=== PATIENT | female | born 1990 | race Caucasian/White ===

== ENCOUNTER 2019-05-01 19:47 | Emergency (ER) | payer MEDICAID ==
[~2019-05-01] VITALS: Ht 160 cm; Wt 62.7 kg
[~2019-05-01 19:47] MED LIST: ALBU18HF2; NAPR375T PO
[2019-05-01 20:10] VITALS: BP 140/74
[2019-05-01] MEDS ORDERED: ibuprofen tablet 400 MG TABLET PO ONE (21:25)
[2019-05-01] MEDS ORDERED: acetaminophen 325mg tablet PO ONE (21:25)
[2019-05-01 21:32] LABS: CLARITY,URINE CLEAR (Clear); COLOR,URINE YELLOW (Yellow); GLUCOSE, URINE NEGATIVE (Neg); KETONES,URINE TRACE mg/dl (Neg); LEUKOCYTE ESTERASE ,URINE NEGATIVE (Neg); NITRITES, URINE NEGATIVE (Neg); OCCULT BLOOD,URINE NEGATIVE (Neg); PH,URINE 7.5 (4.8-8.0); PROTEIN,URINE NEGATIVE (Neg)
[2019-05-01 21:34] LABS: URINE HCG NEGATIVE (NEG)
[2019-05-01 21:35] LABS: UA COLLECTION TYPE CLN CATCH MIDSTREAM
[2019-05-01] MEDS ORDERED: CYCL-1 PO (21:43)
== END 2019-05-01 21:57 | disposition home or self-care (01) ==
LOC: ER 19:49
DX: M54.5 Low back pain (principal); R06.02 Shortness of breath; R11.0 Nausea; J45.909 Unspecified asthma, uncomplicated; G89.29 Other chronic pain; Z88.8 Allergy status to other drugs, medicaments and biological substances; Z79.899 Other long term (current) drug therapy
CPT/HCPCS: 81003; 81025; 93005; 99284

== ENCOUNTER 2019-07-20 16:58 | Inpatient (IN) | payer MEDICAID ==
[~2019-07-20] VITALS: Ht 162.6 cm; Wt 57.0 kg
[~2019-07-20 16:58] MED LIST changes: +CYCL-1 PO
[2019-07-20 18:00] LABS: BASOPHILS % (AUTO) 0.1 % (0-1); EOSINOPHILS % (AUTO) 0 % (0-6); LYMPHOCYTES % (AUTO) 5.6 % (21-51); MEAN CORPUSCULAR HEMOGLOBIN 33.4 PG (27.0-31.0); MEAN CORPUSCULAR HGB CONC 35.4 g/dL (33.0-36.5); MEAN CORPUSCULAR VOLUME 94.3 FL (78-98); MEAN PLATELET VOLUME 11.2 FL (7.4-10.4); MONOCYTES # (AUTO) 0.6 X10'3 (0-0.9); MONOCYTES % (AUTO) 3.6 % (2-12); NEUTROPHILS # (AUTO) 16.5 X10'3 (1.8-7.7); NEUTROPHILS % (AUTO) 90.7 % (42-75); PLATELET COUNT 202 X10'3 (140-440); RED BLOOD COUNT 5.09 X10'6 (4.20-5.60); RED CELL DISTRIBUTION WIDTH 12.2 % (11.5-14.5); WHITE BLOOD COUNT 18.2 X10'3 (4.5-11.0)
[2019-07-20 18:18] LABS: ALANINE AMINOTRANSFERASE 18 U/L (12-78); ALBUMIN 5.1 G/DL (3.4-5.0); ALKALINE PHOSPHATASE 105 IU/L (46-116); ANION GAP 17 (8-16); ASPARTATE AMINO TRANSFERASE 19 U/L (10-37); BLOOD UREA NITROGEN 22 MG/DL (7-18); BUN/CREATININE RATIO 10.1 (6.6-38.0); CALCIUM 10.6 MG/DL (8.5-10.1); CHLORIDE 96 MMOL/L (99-107); CREATININE 2.17 MG/DL (0.40-0.90); GLUCOSE 111 MG/DL (70-104); POTASSIUM 4.3 MMOL/L (3.5-5.1); SODIUM 134 MMOL/L (135-145); TOTAL CARBON DIOXIDE 21.2 MMOL/L (24-32); eGFR 27 ML/MIN
[2019-07-20] MEDS ORDERED: LORazepam 2 mg/ml vial IV ONE (19:05)
[2019-07-20] MEDS ORDERED: famotidine/PF 10 mg/ml inj IV ONE (19:05)
[2019-07-20] MEDS ORDERED: haloperidol lactate 5mg/ml inj IM ONE (19:05)
[2019-07-20] MEDS ORDERED: ondansetron/PF 4mg/2ml inj IV ONE (19:05)
[2019-07-20] MEDS ORDERED: normal saline 1000ML IV soln IV ONE (19:05)
[2019-07-20 19:13] LABS: LIPASE < 50 U/L (73-393)
[2019-07-20 20:55] LABS: HCG SERUM QL NEGATIVE
[2019-07-20 23:24] LABS: CLARITY,URINE CLOUDY (Clear); COLOR,URINE YELLOW (Yellow); GLUCOSE, URINE NEGATIVE (Neg); KETONES,URINE 15 mg/dl (Neg); LEUKOCYTE ESTERASE ,URINE NEGATIVE (Neg); NITRITES, URINE NEGATIVE (Neg); OCCULT BLOOD,URINE SMALL (Neg); PH,URINE 5.5 (4.8-8.0); PROTEIN,URINE 30 mg/dl (Neg); UROBILINOGEN,URINE 0.2 E.U/dL (0.2-1.0)
[2019-07-20 23:25] LABS: UA COLLECTION TYPE CLN CATCH MIDSTREAM
[2019-07-20 23:30] LABS: HYALINE CASTS >30 /LPF (NEGATIVE); SQUAMOUS EPITHELIAL CELL,UR MANY /LPF (FEW)
[2019-07-20 23:32] LABS: BACTERIA,URINE 1+ /HPF (Neg)
[2019-07-20] MEDS ORDERED: morphine 2 MG/ML inj. syringe IV PRN ×2 (23:45)
[2019-07-20] MEDS ORDERED: ondansetron/PF 4mg/2ml inj IV PRN (23:45)
[2019-07-21] MEDS: normal saline 1000ml 1,000 ML IV SCH ×2 (00:34→07:39)
--- NOTE | 2019-07-21 00:44 | NUR ---
Patient in room ED 10. I have received report from ODETTE Drummond and had the opportunity to ask questions and assume patient care.
[2019-07-21 00:49] LABS: URINE AMPHETAMINE SCREEN NEGATIVE (Neg); URINE BARBITUATE SCREEN NEGATIVE (Neg); URINE BENZODIAZEPINES SCREEN NEGATIVE (Neg); URINE CANNABINOID SCREEN POSITIVE (Neg); URINE COCAINE SCREEN NEGATIVE (Neg); URINE METHADONE SCREEN NEGATIVE (Neg); URINE OPIATE SCREEN NEGATIVE (Neg); URINE PHENCYCLIDINE SCREEN NEGATIVE (Neg)
[2019-07-21 01:00] VITALS: BP 92/33
[2019-07-21 06:10] VITALS: BP 94/49
[2019-07-21 06:12] LABS: BASOPHILS % (AUTO) 0.2 % (0-1); EOSINOPHILS # (AUTO) 0.1 X10'3 (0-0.9); EOSINOPHILS % (AUTO) 0.5 % (0-6); HEMATOCRIT 38.1 % (35.0-45.0); HEMOGLOBIN 13.1 g/dl (12.0-16.0); LYMPHOCYTES # (AUTO) 1.7 X10'3 (1.1-4.8); LYMPHOCYTES % (AUTO) 16.7 % (21-51); MEAN CORPUSCULAR HEMOGLOBIN 33.6 PG (27.0-31.0); MEAN CORPUSCULAR HGB CONC 34.5 g/dL (33.0-36.5); MEAN CORPUSCULAR VOLUME 97.2 FL (78-98); MEAN PLATELET VOLUME 11.4 FL (7.4-10.4); MONOCYTES # (AUTO) 0.8 X10'3 (0-0.9); MONOCYTES % (AUTO) 7.9 % (2-12); NEUTROPHILS # (AUTO) 7.8 X10'3 (1.8-7.7); NEUTROPHILS % (AUTO) 74.7 % (42-75); PLATELET COUNT 138 X10'3 (140-440); RED BLOOD COUNT 3.92 X10'6 (4.20-5.60); RED CELL DISTRIBUTION WIDTH 12.1 % (11.5-14.5); WHITE BLOOD COUNT 10.4 X10'3 (4.5-11.0)
--- NOTE | 2019-07-21 06:30 | NUR ---
I have received patient report from Micaela PINO
[2019-07-21 06:38] LABS: ALANINE AMINOTRANSFERASE 17 U/L (12-78); ALBUMIN 3.3 G/DL (3.4-5.0); ALKALINE PHOSPHATASE 70 IU/L (46-116); ANION GAP 6 (8-16); ASPARTATE AMINO TRANSFERASE 29 U/L (10-37); BILIRUBIN,TOTAL 0.7 MG/DL (0.1-1.0); BLOOD UREA NITROGEN 13 MG/DL (7-18); BUN/CREATININE RATIO 11.4 (6.6-38.0); CALCIUM 8.2 MG/DL (8.5-10.1); CHLORIDE 107 MMOL/L (99-107); CREATININE 1.14 MG/DL (0.40-0.90); GLUCOSE 82 MG/DL (70-104); SODIUM 140 MMOL/L (135-145); TOTAL CARBON DIOXIDE 26.8 MMOL/L (24-32); TOTAL PROTEIN 6.6 G/DL (6.4-8.2); eGFR 57 ML/MIN
--- NOTE | 2019-07-21 06:39 | NUR ---
Problems reprioritized. Patient report given, questions answered & plan of care reviewed with ODETTE Huffman.
[2019-07-21] MEDS ORDERED: heparin, porcine 5000 units/ml vial SQ SCH (08:00)
[2019-07-21] MEDS ORDERED: SINCALIDE IV ONE (08:35)
[2019-07-21] MEDS ORDERED: NORMAL SALINE IV ONE (08:35)
[2019-07-21 10:00] VITALS: BP 96/51
[2019-07-21] MEDS ORDERED: NO HOME MEDS (11:00)
[2019-07-21] MEDS ORDERED: morphine 2 MG/ML inj. syringe IV ONE (14:00)
== END 2019-07-21 16:00 | disposition home or self-care (01) ==
LOC: ER 16:59 → ED HOLD 23:53 → ORTHO 4S 07-21 00:57
PROVIDERS: ADMIT Internal Medicine; ATTEND Family Medicine
PROC: CF141ZZ Planar Nuclear Medicine Imaging of Gallbladder using Technetium 99m (Tc-99m) (ICD-10-PCS; principal; 2019-07-21)
DX: K80.20 Calculus of gallbladder without cholecystitis without obstruction (principal); N17.0 Acute kidney failure with tubular necrosis; D72.829 Elevated white blood cell count, unspecified; E86.0 Dehydration; F12.288 Cannabis dependence with other cannabis-induced disorder; J45.909 Unspecified asthma, uncomplicated; G89.29 Other chronic pain; M54.9 Dorsalgia, unspecified; R11.15 Cyclical vomiting syndrome unrelated to migraine; Z88.8 Allergy status to other drugs, medicaments and biological substances
CPT/HCPCS: 36415; 74176; 76700; 78227; 80053; 80305; 81001; 83690; 84703; 85025; 87081; 96372; 96374; 96375; 99285; A9537; G0378; J1630; J1644; J2060; J2270; J2405; J2805; J3490; J7030

== ENCOUNTER 2020-04-03 13:55 | Emergency (ER) | payer MEDICAID ==
[~2020-04-03] VITALS: Ht 162.6 cm; Wt 59.1 kg
[~2020-04-03 13:55] MED LIST changes: -ALBU18HF2; -CYCL-1 PO; -NAPR375T PO; +NO HOME MEDS
[2020-04-03] MEDS ORDERED: orphenadrine citrate 60mg/2ml inj. IM ONE (16:00)
[2020-04-03] MEDS ORDERED: ketorolac trometh. 30mg/ml inj. IM ONE (16:00)
[2020-04-03] MEDS ORDERED: predniSONE 20 mg tablet PO ONE (16:40)
[2020-04-03] MEDS ORDERED: morphine 5 MG/ML injection IM ONE (16:40)
[2020-04-03] MEDS ORDERED: GABA300C PO (16:48)
[2020-04-03] MEDS ORDERED: PRED50TA PO (16:48)
[2020-04-03] MEDS ORDERED: morphine 10mg/ml inj. IM ONE (17:20)
--- NOTE | 2020-04-03 17:44 | NUR ---
[facility] [phone].
[2020-04-03] MEDS ORDERED: LIDOcaine 5% patch TP STA (18:06)
[2020-04-03] MEDS ORDERED: triamcinolone acetonide 40mg/ml inj IM ONE (18:10)
[2020-04-03 18:48] VITALS: BP 88/61
== END 2020-04-03 18:49 | disposition home or self-care (01) ==
LOC: ER 13:56
DX: M54.42 Lumbago with sciatica, left side (principal); J45.909 Unspecified asthma, uncomplicated; G89.29 Other chronic pain; Z88.8 Allergy status to other drugs, medicaments and biological substances; Z79.899 Other long term (current) drug therapy
CPT/HCPCS: 73502; 96372; 99284; J1885; J2270; J2360; J3301; J7512

== ENCOUNTER 2020-04-10 11:16 | Emergency (ER) | payer MEDICAID ==
[~2020-04-10] VITALS: Ht 165.1 cm; Wt 59.1 kg
[~2020-04-10 11:16] MED LIST changes: +GABA300C PO; +PRED50TA PO
[2020-04-10 11:38] VITALS: BP 120/81
[2020-04-10] MEDS ORDERED: acetaminophen 325mg tablet PO ONE (14:00)
[2020-04-10] MEDS ORDERED: cyclobenzaprine 10mg tablet PO ONE (14:00)
[2020-04-10] MEDS ORDERED: LIDOcaine 5% patch TP ONE (14:00)
[2020-04-10] MEDS ORDERED: HYDROcodone/acetaminophen 5mg/325mg tablet PO ONE (14:00)
[2020-04-10] MEDS ORDERED: ondansetron 4mg rapidly disintigrating tab PO ONE (14:00)
[2020-04-10] MEDS ORDERED: ibuprofen tablet 400 MG TABLET PO ONE (14:00)
[2020-04-10] MEDS ORDERED: oxyCODONE/APAP 5-325mg tablet PO STA (14:04)
[2020-04-10] MEDS ORDERED: OXYC-145 PO (14:06)
[2020-04-10] MEDS ORDERED: LIDO700A32 TOP (14:06)
[2020-04-10] MEDS ORDERED: ONDA8TAB6 PO (14:07)
[2020-04-10] MEDS ORDERED: CYCL-1 PO (14:07)
== END 2020-04-10 14:24 | disposition home or self-care (01) ==
LOC: ER 11:16
DX: M54.42 Lumbago with sciatica, left side (principal); M54.41 Lumbago with sciatica, right side; R11.0 Nausea; J45.909 Unspecified asthma, uncomplicated; G89.29 Other chronic pain; Z98.890 Other specified postprocedural states; Z88.1 Allergy status to other antibiotic agents; Z79.899 Other long term (current) drug therapy
CPT/HCPCS: 20552; 99284

== ENCOUNTER 2021-02-21 13:02 | Emergency (ER) | payer MEDICAID, OTHER ==
[~2021-02-21] VITALS: Ht 162.6 cm; Wt 61.4 kg
[~2021-02-21 13:02] MED LIST changes: +CYCL-1 PO; +LIDO700A32 TOP; +ONDA8TAB6 PO; +OXYC-145 PO
[2021-02-21 13:08] VITALS: BP 112/61
[2021-02-21] MEDS ORDERED: ketorolac tromethamine 15mg/ml inj. IM ONE (14:20)
[2021-02-21] MEDS ORDERED: ondansetron 4mg rapidly disintigrating tab PO ONE (15:50)
[2021-02-21] MEDS ORDERED: morphine 4 MG/ML inj SYRINge IM ONE (15:50)
[2021-02-21] MEDS ORDERED: DEXA6TAB6 PO (16:01)
[2021-02-21] MEDS ORDERED: IBUP-1984 PO (16:01)
[2021-02-21] MEDS ORDERED: CYCL-1 PO (16:01)
== END 2021-02-21 16:25 | disposition home or self-care (01) ==
LOC: ER 13:04
DX: M50.10 Cervical disc disorder with radiculopathy, unspecified cervical region (principal); G89.29 Other chronic pain; J45.909 Unspecified asthma, uncomplicated
CPT/HCPCS: 72125; 96372; 99284; J1885; J2270